=== PATIENT | male | born 1940 | race Caucasian/White ===

== ENCOUNTER → 2023-11-22 12:03 | Outpatient (REF) | payer OTHER, SELFPAY | LOC: RAD 12:03 | PROVIDERS: ATTENDING PHYSICIAN Internal Medicine Cardiovascular Disease; FAMILY PHYSICIAN Nurse Practitioner Family | DX: E78.5 Hyperlipidemia, unspecified (principal); I49.3 Ventricular premature depolarization; I35.1 Nonrheumatic aortic (valve) insufficiency; J45.990 Exercise induced bronchospasm | CPT/HCPCS: 71275; Q9967 ==

== ENCOUNTER → 2024-07-01 11:22 | Outpatient (REF) | payer OTHER, SELFPAY | LOC: PAVMRI 11:22 | PROVIDERS: ATTENDING PHYSICIAN Physician Assistant Surgical; FAMILY PHYSICIAN Nurse Practitioner Family | DX: M48.062 Spinal stenosis, lumbar region with neurogenic claudication (principal); M54.50 Low back pain, unspecified; M54.16 Radiculopathy, lumbar region; M41.86 Other forms of scoliosis, lumbar region; M51.369 Other intervertebral disc degeneration, lumbar region without mention of lumbar back pain or lower extremity pain | CPT/HCPCS: 72158; A9575 ==

== ENCOUNTER → 2025-04-14 10:10 | Outpatient (REF) | payer OTHER, SELFPAY | LOC: RAD 10:10 | PROVIDERS: ATTENDING PHYSICIAN Internal Medicine Cardiovascular Disease; FAMILY PHYSICIAN Nurse Practitioner Family | DX: E78.5 Hyperlipidemia, unspecified (principal); J45.990 Exercise induced bronchospasm; R06.09 Other forms of dyspnea; I71.20 Thoracic aortic aneurysm, without rupture, unspecified; I49.3 Ventricular premature depolarization; I35.1 Nonrheumatic aortic (valve) insufficiency | CPT/HCPCS: 71275; Q9967 ==